=== PATIENT | female | born 1955 | race Two or more races ===

== ENCOUNTER 2017-05-11 17:09 | Observation (INO) | payer OTHER ==
[2017-05-11 18:33] VITALS: PULSE 59
--- NOTE | 2017-05-11 18:33 | NUR ---
direct admit pt admitted from [facility] for chest pain. Chest pain has been resolved since pt arrived at [facility]. pt denies SOB or any pain currently and states that she never really had chest pain, just a feeling of air in her chest. pt was given 1.5 inches of Nitro paste at [place] but has since been removed. bed in low locked position and patient oriented to room/call light/and bathroom. Addendum: 05/11/17 at 1840 by JEREMY GREENE RN pt arrived to floor at 1830, delay in charting due to pt not being in the system at [facility].
[2017-05-11 18:44] VITALS: BP 146/88; PULSE 54; O2SAT 99
[2017-05-11] MEDS ORDERED: Atropine 1 mg/10 mL (Code) Syringe IVPUSH PRN (19:05)
[2017-05-11] MEDS ORDERED: Alum-Mag Hydrox-Simeth 30 mL Suspension PO PRN ×2 (19:05→20:14)
[2017-05-11] MEDS ORDERED: Ondansetron 2 mg/mL 2 mL Inj IVPUSH PRN ×2 (19:05→20:14)
[2017-05-11] MEDS ORDERED: Polyethylene Glycol (PEG) 17 Gm Powder PO PRN (19:05)
[2017-05-11] MEDS ORDERED: Senna-Docusate 8.6-50 mg Tablet PO PRN (19:05)
[2017-05-11 19:55] LABS: TROPONIN T 0.01 ug/L (0.0-0.011)
[2017-05-11 20:05] LABS: Magnesium 1.8 mg/dL (1.6-2.6)
[2017-05-11 20:56] LABS: BASOPHILS % (AUTO) 0.4 % (0-3); EOSINOPHILS % (AUTO) 0.8 % (0-5); Mean Corpuscular Hemoglobin 27.9 pg (27.0-35.0); Mean Corpuscular Volume 85.4 fL (81-100); NEUTROPHILS % (AUTO) 49.5 % (40-74); Platelet Count 387 bil/L (150-400)
--- NOTE | 2017-05-11 21:29 | PCM.HPMED ---
Subjective Date of Service May 11, 2017 Primary Provider: Admitting Physician: Campos Weldon MD Primary Care Physician: Nopcp Attending Physician: Campos Weldon MD Admit Status: Direct Admit, 23-Hour Observation, Remote Telemetry Chief Complaint: Chest pain. . History of Present Illness: Van Perez (Sunny) is a 61-year-old female with a past medical history significant for hypertension and hyperlipidemia who was a direct admit from [facility] for chest pain. The patient reports that she was at home doing her hair and talking about finances when she began to have chest discomfort. She described the chest discomfort as pressure sensation and substernal in location. Her chest pressure radiated to her neck and left arm. She had associated shortness of breath. She reports that the first episode lasted approximately 5 minutes and was relieved with sublingual nitroglycerin. The chest pressure returned and she took 2 additional doses of sublingual nitroglycerin without relief prompting her to go to the emergency department. Troponin I was negative at [facility]. EKG performed at [facility] demonstrated normal sinus rhythm with T-wave inversion in leads V1 -V6. Chest pressure was relieved with nitroglycerin 1.5 inch paste and 325 mg of aspirin. She also received 1 L of normal saline and therapeutic Lovenox 80 mg 1. She currently denies any headache, chest pain or pressure, shortness of breath, extremity pain, abdominal pain, nausea, vomiting, fever, chills, dysuria, constipation or diarrhea. She has no other complaints. She has no history of [place] or CAD. Vital signs on admission: Temperature 36.6. Pulse 54. Blood pressure 146/88. Pulse ox 99% on room air. PCP is Dr. Francy Ng . Review of Systems: A comprehensive review of systems was conducted with the patient and found to be negative except as above in the History of Present Illness. . Allergies Coded Allergies: No Known Allergies (Unverified , 05/11/17) Home Medications Aspirin 81 mg daily. Atorvastatin 40 mg daily at bedtime. Fenofibrate 160 mg daily. Lisinopril 20 mg twice a day. Metoprolol succinate 100 mg daily. Omeprazole 40 mg daily. . PMH 1. Hypertension. 2. Hyperlipidemia. 3. GERD. 4. Palpitations. 5. Chronic back pain secondary to herniated disc with radiculopathy. 6. Alcohol use disorder. . Surgical History 1. Bilateral tubal ligation. 2. Epidural steroid injection 2. . Family History Mother who from [place] or blood clot while at 38 years old. Father who of Alzheimer's disease in his 80s. She has one brother and one sister. Her sister reportedly has a blood clot in her brain? Her daughter Michell recently diagnosed with an irregular heartbeat. . Social History Hx Alcohol Use: Yes (3-5 drinks daily) Hx Substance Use: No Hx Tobacco Use: Yes Smoking Status: Former Smoker (2 PPD 30 years) Additional Information The patient has been 17 years. She has one daughter who has an irregular heartbeat but is otherwise healthy. She formerly owned a small business. . Exam Vital Signs Vital Sign - Last Date Time Temp Pulse Resp B/P Pulse Ox O2 Delivery O2 Flow Rate FiO2 05/11/17 18:44 36.6 54 146/88 99 Room Air Exam General: Middle-age female lying in bed and in no acute distress, well-developed , well-nourished, appropriately interactive. HEENT: Normocephalic, atraumatic. External ears without defect. Pupils equal, round, and reactive to light and accommodation. Anicteric sclerae, moist conjunctivae, and no lid lag. Oropharynx free of erythema and cobble stoning with moist mucosa. Neck: Supple with full range of motion. No jugular venous distension. No bruits. No lymphadenopathy or thyromegaly. Cardiovascular: Regular rate and rhythm without murmurs, rubs, or gallops appreciated Pulmonary: Clear to auscultation bilaterally without crackles, wheezes, or rhonchi. Normal respiratory effort with no use of accessory muscles. Abdomen: Soft, nontender, nondistended, bowel sounds present. No hepatosplenomegaly or masses appreciated. Extremities: No clubbing, cyanosis, or edema. Skin: Normal temperature, turgor, and texture; no rash, ulcers, or subcutaneous nodules appreciated. Neurological: Cranial nerves grossly intact. Normal muscle strength, tone, and bulk. Reflexes, coordination, and sensory function within normal limits. No known gait impairment. Psychiatric: Normal mood and affect. Alert and oriented to person, place, and time. . Lab and Diagnostics Labs Item Value Date Time Sodium Level 144 mEq/L 05/11/171919 Potassium Level 4.0 mEq/L 05/11/171919 Chloride Level 106 mEq/L 05/11/171919 Carbon Dioxide Level 20 mmol/L 05/11/171919 Blood Urea Nitrogen 7 mg/dL L 05/11/171919 Creatinine 0.67 mg/dL 05/11/171919 Estimat Glomerular Filtration Rate 128 mL/min 05/11/171919 Glucose Level 97 mg/dL 05/11/171919 Calcium Level 9.5 mg/dL 05/11/171919 Total Bilirubin 0.3 mg/dL 05/11/171919 Aspartate Amino Transf (AST/SGOT) 34 U/L 05/11/171919 Alanine Aminotransferase (ALT/SGPT) 27 U/L 05/11/171919 Alkaline Phosphatase 69 U/L 05/11/171919 Total Protein 7.3 g/dL 05/11/171919 Albumin 4.3 g/dL 05/11/171919 Item Value Date Time White Blood Count 7.2 th/mm3 05/11/171919 Red Blood Count 4.26 mil/mm3 05/11/171919 Hemoglobin 11.9 g/dL L 05/11/171919 Hematocrit 36.4 % 05/11/171919 Mean Corpuscular Volume 85.4 fL 05/11/171919 Mean Corpuscular Hemoglobin 27.9 pg 05/11/171919 Mean Corpuscular Hemoglobin Concent 32.7 % 05/11/171919 Red Cell Distribution Width 13.5 % 05/11/171919 Platelet Count 387 rl/L 05/11/171919 Neutrophils (%) (Auto) 49.5 % 05/11/171919 Lymphocytes (%) (Auto) 42.0 % 05/11/171919 Monocytes (%) (Auto) 7.0 % 05/11/171919 Eosinophils (%) (Auto) 0.8 % 05/11/171919 Basophils (%) (Auto) 0.4 % 05/11/171919 Item Value Date Time Magnesium Level 1.8 mg/dL 05/11/171919 Troponin T 0.010 ug/L 05/11/171919 Thyroid Stimulating Hormone (TSH) 0.852 uIU/mL 05/11/171919 X-Rays, CTs and MRIs Chest x-ray at [facility]: IMPRESSION: No acute disease. . 12-lead ECG EKG performed at [facility]: Sinus rhythm, heart rate 62, normal axis, borderline prolonged QTC at 470 ms otherwise normal intervals, poor R-wave progression, no pathological Q waves, no acute ischemic changes such as ST elevation or depression, inverted T waves in leads V1-V6 indicative of possible early signs of ischemia. . Assessment & Plan Van Perez (Sunny) is a 61-year-old female with a past medical history significant for hypertension and hyperlipidemia who was a direct admit from [facility] for chest pain. The patient reports that she was at home doing her hair and talking about finances when she began to have chest discomfort. 1. Acute chest pain, not present on admission. Resolved. - The patient presented with unstable angina at rest with radiation to left arm and left shoulder blade with shortness of breath relieved with nitroglycerin paste. - Cardiac risk factors include: Hypertension, hyperlipidemia, obesity, former smoker, and possibly family history. - EKG performed at [facility] demonstrated sinus rhythm with T-wave inversion in leads V1-V6. - Troponin I was <0.05 at [facility]. Initial troponin T 0.010. Continue serial troponins x 3. - Chest x-ray performed [facility] did not demonstrate any acute cardiopulmonary process, as above. - Continue aspirin 81 mg daily and atorvastatin 40 mg daily at bedtime. - The patient received therapeutic dose of Lovenox apparent at 1500 at [facility]. Day team to give heparin eith SUBQ or gtt tomorrow depending on clinical course. - Fasting lipid panel ordered for tomorrow morning. - exercise stress test with meghan backup tomorrow - Ordered echocardiogram, pending. Chronic problems: 2. Hypertension, present on admission. Stable. - Continue lisinopril 20 mg twice a day metoprolol succinate 100 mg daily. 3. Hyperlipidemia, present on admission. Stable. - Continue atorvastatin 40 mg daily at bedtime and fenofibrate 160 mg daily. 4. GERD, present on admission. Stable. - Continue omeprazole 40 mg daily. 5. Palpitations, present on admission. Stable. - Continue metoprolol succinate 100 mg daily. 6. Chronic back pain secondary to herniated disc with radiculopathy, present on admission. Stable. - Acetaminophen as needed for pain. 7. Alcohol use disorder, present on admission. Stable. - Patient reports that she drinks 3-6 drinks per night every night. - No history of alcohol withdrawal, seizures or DTs. - Monitor vital signs and a sense of alcohol withdrawal. PRN antiemetics: Zofran and Maalox. PRN bowel regimen: Senna and MiraLAX. PRN analgesics: Tylenol. Patient is admitted under observation status with expected length of stay less than 2 midnights due to severity of presenting symptoms, risk of adverse event, and complexity of treatment plan. . VTE Prophylaxis: Other (therapeutic Lovenox at 1500) Resuscitation Status: CPR: Attempt Resuscitation Attending Statement The patient was seen and examined together with house staff on 05/12/2017 and I agree with the history, exam and plan as outlined in the note above. Sarah Mallory DO May 11, 2017 19:08 Isha Flores DO May 12, 2017 04:24
[2017-05-11] MEDS ORDERED: ASPI-973 PO (23:05)
[2017-05-11] MEDS ORDERED: FENO160T14 PO (23:05)
[2017-05-11] MEDS ORDERED: LISI-567 PO (23:05)
[2017-05-11] MEDS ORDERED: ATOR40TA69 PO (23:05)
[2017-05-11] MEDS ORDERED: METO-394 PO (23:05)
[2017-05-11] MEDS ORDERED: NITR0.4T38 SL (23:05)
[2017-05-11] MEDS ORDERED: OMEP40CA36 PO (23:05)
[2017-05-11 23:32] VITALS: BP 155/81; PULSE 62; RESP 16; O2SAT 98
[2017-05-12] MEDS ORDERED: Heparin 5,000 Unit/mL Inj SUBQ SCH (00:30)
[2017-05-12] MEDS: Sodium Chloride LOK Flush 10 mL Syringe IVFLUSH SCH ×2 (00:30→08:30)
[2017-05-12 03:06] LABS: Creatine Kinase 61 U/L (21-215)
[2017-05-12 05:00] VITALS: BP 146/80; PULSE 54; RESP 16; O2SAT 98
[2017-05-12 05:35] VITALS: PULSE 54
[2017-05-12 05:47] LABS: BASOPHILS % (AUTO) 0.6 % (0-3); EOSINOPHILS % (AUTO) 2.4 % (0-5); MONOCYTES % (AUTO) 6.7 % (4-12); Mean Corpuscular Hemoglobin 28.2 pg (27.0-35.0); NEUTROPHILS % (AUTO) 36.8 % (40-74); Platelet Count 346 bil/L (150-400)
[2017-05-12 05:59] LABS: INR 0.97 ratio
[2017-05-12] MEDS ORDERED: Pantoprazole 40 mg ER24 Tablet PO SCH (06:30)
--- NOTE | 2017-05-12 06:34 | NUR ---
Admit Arrived on prior shift before change of shift. Admit including medications reviewed with patient. Has denied any symptoms all shift. NPO at midnight for stress test which patient is aware of and agreeable to plan of care. Currently resting without any complaints.
[2017-05-12] MEDS ORDERED: METO-369 PO (08:25)
[2017-05-12] MEDS ORDERED: MULT-1018 PO (08:27)
[2017-05-12] MEDS ORDERED: MeTOProlol XL 50 mg ER24 Tablet PO SCH (08:30)
[2017-05-12 09:03] LABS: Creatine Kinase 55 U/L (21-215)
[2017-05-12 09:07] VITALS: BP 155/83; PULSE 67; RESP 16; O2SAT 97
[2017-05-12 09:58] VITALS: BP 71/49; PULSE 83; RESP 16; O2SAT 97
[2017-05-12 10:03] VITALS: BP 74/48
[2017-05-12 11:16] VITALS: PULSE 74
--- NOTE | 2017-05-12 13:45 | PCM.DIMED ---
Discharge Instructions Date of Service May 12, 2017 Dates of Hospitalization May 11, 2017 at 18:25 Discharge Diagnosis Discharge Diagnosis 1. Acute chest pain, resolved. Normal stress test. 2. Hypertension, stable. 3. Hyperlipidemia, stable. 4. GERD, stable. 5. Palpitations, stable. 6. Chronic back pain secondary to herniated disc with radiculopathy, stable. 7. Alcohol use disorder, active. Diet Discharge Diet: Low fat, Low Sodium, Heart Healthy Activity Discharge Activity: No restrictions Call your provider Call your provider for: Shortness of breath, Chest pain Patient Instructions Patient Instructions Dr Meyers at the [facility] in the next 2 weeks. Follow-up with PCP in: 1 week Campos Weldon MD May 12, 2017 13:45
--- NOTE | 2017-05-12 13:59 | PCM.DC.MED ---
Discharge Summary Date of Service May 12, 2017 Dates of Hospitalization Date of Hospital Admission May 11, 2017 at 18:25 Date of Discharge: May 12, 2017 Providers: Admitting Physician: Campos Weldon MD Primary Care Physician: Other,Physician Attending Physician: Campos Weldon MD Diagnosis at Time of Discharge Diagnosis at Time of Discharge 1. Acute chest pain, resolved. Normal stress test. 2. Hypertension, stable. 3. Hyperlipidemia, stable. 4. GERD, stable. 5. Palpitations, stable. 6. Chronic back pain secondary to herniated disc with radiculopathy, stable. 7. Alcohol use disorder, active. Consultations None Procedures XRay, CTs & MRIs Chest x-ray at [facility]: IMPRESSION: No acute disease. . ECG 12 Lead EKG performed at [facility]: Sinus rhythm, heart rate 62, normal axis, borderline prolonged QTC at 470 ms otherwise normal intervals, poor R-wave progression, no pathological Q waves, no acute ischemic changes such as ST elevation or depression, inverted T waves in leads V1-V6 indicative of possible early signs of ischemia. . Cardiac Echo Impression Pending Other Diagnostics Stress MIBI was unremarkable. Discussed with hvac/r instructor reading the study. Brief History Van Perez (Sunny) is a 61-year-old female with a past medical history significant for hypertension and hyperlipidemia who was a direct admit from [facility] for chest pain. The patient reports that she was at home doing her hair and talking about finances when she began to have chest discomfort. She described the chest discomfort as pressure sensation and substernal in location. Her chest pressure radiated to her neck and left arm. She had associated shortness of breath. She reports that the first episode lasted approximately 5 minutes and was relieved with sublingual nitroglycerin. The chest pressure returned and she took 2 additional doses of sublingual nitroglycerin without relief prompting her to go to the emergency department. Troponin I was negative at [facility]. EKG performed at [facility] demonstrated normal sinus rhythm with T-wave inversion in leads V1 -V6. Chest pressure was relieved with nitroglycerin 1.5 inch paste and 325 mg of aspirin. She also received 1 L of normal saline and therapeutic Lovenox 80 mg 1. She currently denies any headache, chest pain or pressure, shortness of breath, extremity pain, abdominal pain, nausea, vomiting, fever, chills, dysuria, constipation or diarrhea. She has no other complaints. She has no history of [place] or CAD. Vital signs on admission: Temperature 36.6. Pulse 54. Blood pressure 146/88. Pulse ox 99% on room air. PCP is Dr. Francy Ng . Hospital Course Van Perez (Sunny) is a 61-year-old female with a past medical history significant for hypertension and hyperlipidemia who was a direct admit from [facility] for chest pain. The patient reports that she was at home doing her hair and talking about finances when she began to have chest discomfort. 1. Acute chest pain, not present on admission. Resolved. - The patient presented with unstable angina at rest with radiation to left arm and left shoulder blade with shortness of breath relieved with nitroglycerin paste. - Cardiac risk factors include: Hypertension, hyperlipidemia, obesity, former smoker, and possibly family history. - EKG performed at [facility] demonstrated sinus rhythm with T-wave inversion in leads V1-V6. - Troponin I was <0.05 at [facility]. Initial troponin T 0.010. Continue serial troponins x 3. - Chest x-ray performed [facility] did not demonstrate any acute cardiopulmonary process, as above. - Continue aspirin 81 mg daily and atorvastatin 40 mg daily at bedtime. - The patient received therapeutic dose of Lovenox apparent at 1500 at [facility]. Day team to give heparin eith SUBQ or gtt tomorrow depending on clinical course. - Fasting lipid panel ordered for tomorrow morning. - exercise stress test with meghan backup tomorrow - Ordered echocardiogram, pending. Chronic problems: 2. Hypertension, present on admission. Stable. - Continue lisinopril 20 mg twice a day metoprolol succinate 100 mg daily. 3. Hyperlipidemia, present on admission. Stable. - Continue atorvastatin 40 mg daily at bedtime and fenofibrate 160 mg daily. 4. GERD, present on admission. Stable. - Continue omeprazole 40 mg daily. 5. Palpitations, present on admission. Stable. - Continue metoprolol succinate 100 mg daily. 6. Chronic back pain secondary to herniated disc with radiculopathy, present on admission. Stable. - Acetaminophen as needed for pain. 7. Alcohol use disorder, present on admission. Stable. - Patient reports that she drinks 3-6 drinks per night every night. - No history of alcohol withdrawal, seizures or DTs. - Monitor vital signs and a sense of alcohol withdrawal. Patient is admitted under observation status with expected length of stay less than 2 midnights due to severity of presenting symptoms, risk of adverse event, and complexity of treatment plan. Hospital course. This patient was admitted and ruled out with serial troponins. She was given 1 dose of Lovenox. She does have multiple risk factors but no personal history of CAD. She underwent a stress test without any symptoms and this was interpreted as completely normal. This included a MIBI. After the test we discussed possible lifestyle modifications that she could undergo temporal blood pressure control and likely her cardiovascular prognosis. This includes diminishing salt diet, and probable cessation of alcohol which she uses a moderate amount of. In addition she is strongly encouraged to start regular walking program for exercise and see her doctor within the next 2 weeks. She has had outpatient rhythm monitoring in the past and may need this again if she does describe some element of episodic palpitations. . Exam Vital Signs (Last) Date Time Temp Pulse Resp B/P Pulse Ox O2 Delivery O2 Flow Rate FiO2 05/12/17 11:16 74 05/12/17 09:07 36.5 16 155/83 97 Room Air Exam The patient was seen and examined the of discharge. She was felt medically to be stable for discharge home. Test 05/11/17 19:20 05/11/17 20:46 05/12/17 05:32 05/12/17 08:01 Hemoglobin A1c 6.0% (4.8-5.6) Magnesium Level 1.8mg/dL (1.6-2.6) Total Bilirubin 0.3mg/dL (0.0-1.2) Aspartate Amino Transf (AST/SGOT) 34U/L (0-50) Alanine Aminotransferase (ALT/SGPT) 27U/L (0-32) Alkaline Phosphatase 69U/L (25-165) Total Protein 7.3g/dL (6.4-8.4) Albumin 4.3g/dL (3.4-5.0) Thyroid Stimulating Hormone (TSH) 0.852uIU/mL (0.450-4.500) Hold Wylie Top Tube Received (Received) Hold Urine Received (Received) White Blood Count 6.2th/mm3 (3.8-10.1) Red Blood Count 4.08mil/mm3 (3.90-5.20) Hemoglobin 11.5g/dL (12.0-15.6) Hematocrit 35.5% (35.0-46.0) Mean Corpuscular Volume 87.0fL (81-100) Mean Corpuscular Hemoglobin 28.2pg (27.0-35.0) Mean Corpuscular Hemoglobin Concent 32.4% (32.0-37.0) Red Cell Distribution Width 13.6% (12.3-15.4) Platelet Count 346bil/L (150-400) Neutrophils (%) (Auto) 36.8% (40-74) Lymphocytes (%) (Auto) 53.3% (14-46) Monocytes (%) (Auto) 6.7% (4-12) Eosinophils (%) (Auto) 2.4% (0-5) Basophils (%) (Auto) 0.6% (0-3) Prothrombin Time 10.4sec (8.1-12.5) Prothromb Time International Ratio 0.97ratio Sodium Level 143mEq/L (134-144) Potassium Level 3.9mEq/L (3.5-5.2) Chloride Level 105mEq/L (97-108) Carbon Dioxide Level 25mmol/L (18-29) Blood Urea Nitrogen 8mg/dL (8-27) Creatinine 0.72mg/dL (0.57-1.00) Estimat Glomerular Filtration Rate 118mL/min (>59) Glucose Level 103mg/dL (60-99) Calcium Level 9.4mg/dL (8.5-10.1) Triglycerides Level 343mg/dL (0-149) Cholesterol Level 174mg/dL (100-199) LDL Cholesterol, Calculated 71.400mg/dL (0-99) VLDL Cholesterol 68.600mg/dL HDL Cholesterol 34mg/dL (>39) Cholesterol/HDL Ratio 5.12 (0.0-4.4) Total Creatine Kinase 55U/L (21-215) Creatine Kinase MB 1.0ng/mL (0.0-5.3) Creatine Kinase MB % % (0.0-5.0) Troponin T 0.010ug/L (0.0-0.011) Discharge Medications Discharge Medications Aspirin (Aspirin) 81 Mg Tablet 81 MG PO DAILY (Reported) Atorvastatin Calcium (Atorvastatin Calcium) 40 Mg Tablet 40 MG PO DAILY ( Reported) Fenofibrate (Fenofibrate) 160 Mg Tablet 160 MG PO DAILY (Reported) Lisinopril (Lisinopril) 20 Mg Tablet 20 MG PO BID (Reported) Metoprolol Succinate ER (Metoprolol Succinate ER) 50 Mg Tab.er.24h 2 TAB PO HS ( Reported) Multivitamin (Multi Vitamin Daily) 1 Each Tablet 1 EACH PO DAILY (Reported) Omeprazole (Omeprazole) 40 Mg Capsule.dr 40 MG PO DAILY (Reported) As needed Nitroglycerin SL (Nitroglycerin SL) 0.4 Mg Tab.subl 0.4 MG SL PRN For Chest Pain (Reported) Place one tab under tongue every five minutes for CP until resolved. Do not take more than 3. If not resolved after third dose call 911. Followup Plan Disposition: Home Discharge Diet: Low fat, Low Sodium, Heart Healthy Discharge Activity: No restrictions Patient Instructions Dr Meyers at the [facility] in the next 2 weeks. Follow-up with PCP in: 1 week Time spent 30 minutes Capmos Weldon MD May 12, 2017 13:59
--- NOTE | 2017-05-12 14:38 | NUR ---
Cardiac Stress Test, Discharge 08 - Dayanna from Nuclear medicine called and was given a report. She said the stress test would happen around 1100. 09 - Discussed her care with Dr. Weldon and and the rest of the multidisciplinary care team during morning rounds. Asked Dr. Weldon if he wanted to order any anticoagulation as none had been ordered and if he wanted to resume her home cardiac medications. He said he'd look into it. Dr. Weldon also said he would down grade her from [facility] patient status to [facility]. 1110 - She left for the stress test. Radiological Health Specialist notified. 1235 - She returned to room 3011 and was placed back on telemetry. She was going to take her AM medications after she ate lunch, but then politely declined her meds as she was discharging and said she would take them when she got home. 1425 - She discharged at this time. Before discharge her IV and telemetry were discontinued intact. Discussed with and gave her the discharge paperwork (instructions, care notes, nuclear medicine letter). There were no new prescriptions ordered. She collected and took all her belongings. Her came to drive her home and she was escorted to the outside door of the hospital by this nurse. They thanked staff for her care. Addendum: 05/12/17 at 1544 by JIN ALBERTO RN Correction: When speaking to Dr. Weldon this morning during rounds this nurse did not ask if he wanted to resume her cardiac medications (wrong pt). Informed Dr. Weldon that her AM medications had not been given yet as she was wanting to eat before taking them. She had to be NPO until after her stress test and so would take them in the afternoon. Dr. Weldon said this would be find. Care continues.
--- NOTE | 2017-05-12 14:40 | DRSVH ---
[facility] [address] [place] [address] Echocardiogram Report Name: MJ GRANADOS SStudy Date: 05/12/2017 Height: 61 in Hospital Exam Location: [facility] Weight: 156 lb Gender: Female BSA: 1.7 m2 : 1955 Age: 61 yrs BP: 155/83 mmHg Reason For Study: Chest pain Ordering Physician: Performed By: Tiffanie Spencer Interpretation Summary The left ventricle is normal in size. The ejection fraction is estimated to be 60-65%. The right ventricle is normal in size and function. There is mild aortic regurgitation. The ascending aorta is mild-moderately enlarged (Diameter 4.0 cm). The aortic arch is mild-moderately enlarged (Diameter 3.7 cm). Procedure: A two-dimensional transthoracic echocardiogram with color flow and Doppler was performed. The study quality was technically adequate. There is no prior echocardiogram noted for this patient. The patient was in normal sinus rhythm during the exam. Left Ventricle: The left ventricle is normal in size. Proximal septal thickening is noted. There is no echo evidence for significant left ventricular outflow tract obstruction. There is no thrombus. The ejection fraction is estimated to be 60-65%. There are no focal wall motion abnormalities. Normal E/A ratio but abnormal E/E'. Right Ventricle: The right ventricle is normal in size and function. Atria: Both atria are normal in size. There is no Doppler evidence for an interatrial shunt. Mitral Valve: The mitral valve leaflets are slightly calcified. There is trace mitral regurgitation. Aortic Valve: The aortic valve is not well visualized. The aortic valve opens well. There is no aortic valve stenosis. There is mild aortic regurgitation. Tricuspid Valve: The tricuspid valve is not well visualized, but is grossly normal. Pulmonary artery pressures cannot be estimated because of the lack of a measurable TR jet velocity. There is trace tricuspid regurgitation. Pulmonic Valve: The pulmonic valve is not well seen, but is grossly normal. There is trace pulmonic regurgitation. Great Vessels: The aortic root is mildly dilated. The ascending aorta is mild-moderately enlarged. The aortic arch is mild-moderately enlarged. The IVC is of normal diameter and collapses less than 50% with a sniff. This suggests a right atrial pressure of 8 mm Hg. Pericardium/ Pleura There is no pericardial effusion. There is an anterior echo-free space consistent with a fat pad. There is no pleural effusion. MMode/2D Measurements & Calculations LVIDd: 5.1 cm LVIDs: 3.4 cm LA A2 area: 18.7 cm FS: 33.0 % LA A4 area: 22.2 cm IVSd: 1.1 cm LA length (vol): 6.2 cm LVPWd: 0.82 cm LA vol: 56.5 ml LA vol index: 33.2 ml/m IVC diam: 2.0 cm RA long axis: 5.0 cm LVOT diam: 2.2 cm RA area: 17.3 cm AoV Openin.9 cm RA vol: 50.5 ml Ao root diam: 3.8 cm RA : 29.7 ml/m2 Aortic Jxn: 3.1 cm asc Aorta Diam: 4.0 cm Ao Arch Diam (Prox Trans): 3.7 cm LV avendaño. diameter/BSA (cm/m^2): 3.0 LV sys. diameter/BSA (cm/m^2): 2.0 RVD1 (basal): 3.9 cm RVD2 (mid): 2.4 cm TAPSE: 2.6 cm Doppler Measurements & Calculations Ao V2 max: 171.0 cm/sec MV E max rudy: 97.2 cm/sec Ao max P.7 mmHg MV A max rudy: 78.8 cm/sec Ao mean P.9 mmHg MV P1/2t: 55.3 msec LVOT Max Rudy: 125.4 cm/sec MEHREEN(I,D): 3.3 cm sev ratio: 0.89 AI P1/2t: 755.0 msec AI dec slope: 193.6 cm/sec2 MV E/A: 1.2 PA V2 max: 108.8 cm/sec Med Peak E' Rudy: 6.4 cm/sec PA mean P.2 mmHg E/E' med: 15.1 PA Accel Time: 0.12 sec Lat Peak E' Rudy: 5.5 cm/sec E/E' lat: 17.6 E/e' average: 16.4 MV dec time: 0.19 sec MV P1/2t max rudy: 97.2 cm/sec MVA(P1/2t): 4.0 cm2 Ao V2 mean: 102.4 cm/sec LV V1 max P.3 mmHg Ao V2 VTI: 35.5 cm LV V1 VTI: 31.6 cm MEHREEN(V,D): 2.7 cm2 PA V2 mean: 69.7 cm/sec MEHREEN indexed to BSA (cm^2/m^2): 1.9 Reading Physician:KRISTINE
--- NOTE | 2017-05-12 16:24 | DRSVH ---
PROCEDURE: EITHER REST OR STRESS ONLY. Exercise myocardial perfusion SPECT with gated imaging and e jection fraction RADIOPHARMACEUTICAL: 23.4 mCi of Tc-99m tetrofosmin IV at peak exercise. INDICATIONS: CHEST PAIN TECHNIQUE: Radiopharmaceutical was injected at peak stress test. SPECT images were obtained, with p erfusion images in short axis, horizontal long axis, and vertical long axis views. Gated images were reviewed using [employer] software. COMPARISON: None. CARDIAC STRESS: A standard Pedro treadmill exercise tolerance test was performed by the patient unde r the supervision of attending staff. The patient exercised for 6 minutes and 20 seconds; functional aerobic impairment (MARI) was -12%. Hemodynamic Data: There is normal blood pressure and heart response to exercise. The patient achiev ed 101% of maximum predicted heart rate. Symptoms: The patient had some shortness of breath and chest discomfort during, which resolved durin g the recovery period. EKG: Baseline rhythm was sinus. The patient, at baseline, had up to 0.5 mm horizontal upsloping dep ressions in the inferior leads and leads V3 to V6 as well as T-wave inversion in the septal lead. Th e ST depression became more pronounced during stress. No significant arrhythmias were seen. FINDINGS: Raw Data: Breast shadow was seen. Left Ventricular Function: The stress LV ejection fraction was 82%. I do not see any obvious wall m otion abnormalities. Stress LV end diastolic volume was 58 mL. Myocardial Perfusion: There was normal myocardial perfusion. IMPRESSION: I will call this study a normal myocardial perfusion study. The patient walked on Pedro protocol for about 6 minutes and 20 seconds, with some nonspecific ST-T changes. Left ventricular e jection fraction was 82%. There were no significant arrhythmias. As far as the perfusion scan is co ncerned, this is a low risk myocardial perfusion scan. Dictated by: Cain Kumar M.D. on 05/12/2017 at 13:52 Transcribed by: KHANG on 05/12/2017 at 19:24 Approved by: Cain Kumar M.D. on 05/12/2017 at 17:30
--- NOTE | 2017-05-12 16:29 | NUR ---
Social Work Note: Brief Note/Discharge Data& Assessment: EMR Reviewed. Per MD in multidisciplinary rounds, pt is medically ready for discharge. Van Perez is a 61 year old female admitted on 05/11/2017 for chest pain. Pt has [facility] insurance coverage. Pt lives in [place] with family and is independent at baseline. Per clinical appeals specialist, pt is independent in her room. Per MD pt is medically improved and ready for discharge. MD does not identify any concerns for pt capacity for self care at this time. No other discharge needs identified. Plan: Per MD pt is medically ready to discharge home via POV. No other discharge needs or MD orders identified. LISHA Delgado
== END 2017-05-12 14:25 | disposition home or self-care (01) ==
LOC: MPC 18:25 → INTOOBSV 18:25
PROVIDERS: ADMIT Hospitalist; ATTEND Hospitalist
DX: R07.9 Chest pain, unspecified (principal); R00.2 Palpitations; I10 Essential (primary) hypertension; E78.5 Hyperlipidemia, unspecified; E66.9 Obesity, unspecified; Z87.891 Personal history of nicotine dependence; K21.9 Gastro-esophageal reflux disease without esophagitis; Z72.89 Other problems related to lifestyle; M54.9 Dorsalgia, unspecified; G89.29 Other chronic pain
CPT/HCPCS: 36415; 78451; 80048; 80053; 80061; 82550; 82553; 83036; 83735; 84443; 84484; 85025; 85610; 93017; A9502; C8929; G0378; G0379